=== PATIENT | male | born 1990 | race Caucasian/White ===

== ENCOUNTER 2020-06-08 20:39 | Emergency (ER) | payer OTHER ==
[2020-06-08 20:58] VITALS: BP 140/86; PULSE 91; TEMP 98.5; BMI 34.0
== END 2020-06-08 22:47 | disposition home or self-care (01) ==
LOC: JER 20:39
DX: U07.1 COVID-19 (principal)
CPT/HCPCS: 71046-TC-FY; 99283-25; C9803; U0003

== ENCOUNTER 2020-06-28 16:39 | Emergency (ER) | payer OTHER ==
[2020-06-28 17:00] VITALS: BP 121/79; PULSE 75; TEMP 98; BMI 33.0
[2020-06-28] MEDS ORDERED: FLUORESCEIN NA 1 EA STRIP ONE (17:29)
[2020-06-28] MEDS ORDERED: TETRACAINE 0.5% OPHTH SOLN 2 ML BOTTLE ONE (17:29)
== END 2020-06-28 18:00 | disposition home or self-care (01) ==
LOC: JERFT 16:39
DX: S05.01XA Injury of conjunctiva and corneal abrasion without foreign body, right eye, initial encounter (principal)
CPT/HCPCS: 99283-25

== ENCOUNTER 2021-05-02 06:28 | Emergency (ER) | payer OTHER ==
[2021-05-02] MEDS ORDERED: ACETAMINOPHEN 325 MG TABLET (FP) PO ONE (07:34)
[2021-05-02] MEDS ORDERED: ACETAMINOPHEN 500 MG TABLET (FP) ONE (07:36)
[2021-05-02] MEDS ORDERED: DEXAMETHASONE LIQUID 0.5 MG/5 ML PO ONE (07:59)
[2021-05-02 08:10] VITALS: BP 139/77; PULSE 123; TEMP 98.7; BMI 32.5
[2021-05-02] MEDS ORDERED: DEXAMETHASONE SOD PHOSPHATE 10 MG/1 ML VIAL ONE (08:13)
[2021-05-03 06:07] LABS: SARS-CoV-2 NAA Not Detected (Not Detected)
== END 2021-05-02 08:45 | disposition home or self-care (01) ==
LOC: JER 06:28
DX: J02.9 Acute pharyngitis, unspecified (principal)
CPT/HCPCS: 87651; 87804; 99283-25; C9803; U0003; U0005

== ENCOUNTER 2021-09-07 17:28 | Emergency (ER) | payer OTHER ==
[2021-09-07 17:48] VITALS: BP 130/75; PULSE 94; TEMP 98.6; BMI 36.0
[2021-09-07] MEDS ORDERED: METHOCARBAMOL 500 MG TABLET PO ONE (18:48)
[2021-09-07] MEDS ORDERED: KETOROLAC TROMETHAMINE 30 MG/1 ML VIAL IM ONE (18:48)
[2021-09-07] MEDS ORDERED: KETOROLAC TROMETHAMINE 30 MG/1 ML VIAL ONE (19:16)
[2021-09-07] MEDS ORDERED: METHOCARBAMOL 500 MG TABLET ONE (19:16)
== END 2021-09-07 19:31 | disposition home or self-care (01) ==
LOC: JERFT 17:28
PROC: 3E0233Z Introduction of Anti-inflammatory into Muscle, Percutaneous Approach (ICD-10-PCS; principal; 2021-09-07)
DX: M54.50 Low back pain, unspecified (principal)
CPT/HCPCS: 99283-25

== ENCOUNTER 2022-10-22 01:39 | Emergency (ER) | payer OTHER ==
[2022-10-22 01:53] VITALS: BP 112/70; PULSE 69; RESP 18; TEMP 98; BMI 36.0
[2022-10-22] MEDS ORDERED: ONDANSETRON *ODT* 4 MG TABLET SL ONE (02:27)
[2022-10-22] MEDS ORDERED: ACETAMINOPHEN 325 MG TABLET (FP) PO ONE (02:27)
[2022-10-22] MEDS ORDERED: DIPHTH,PERTUSS(ACELL),TET 0.5 ML DISP.SYRIN IM ONE ×2 (02:32→03:17)
[2022-10-22] MEDS ORDERED: ACETAMINOPHEN 325 MG TABLET (FP) ONE (03:17)
[2022-10-22] MEDS ORDERED: ONDANSETRON *ODT* 4 MG TABLET ONE (03:17)
== END 2022-10-22 04:56 | disposition home or self-care (01) ==
LOC: JER 01:39
PROC: 0HQ1XZZ Repair Face Skin, External Approach (ICD-10-PCS; principal; 2022-10-22)
PROC: 3E0234Z Introduction of Serum, Toxoid and Vaccine into Muscle, Percutaneous Approach (ICD-10-PCS; 2022-10-22)
DX: S01.81XA Laceration without foreign body of other part of head, initial encounter (principal); S01.511A Laceration without foreign body of lip, initial encounter; R11.0 Nausea; R51.9 Headache, unspecified; W22.8XXA Striking against or struck by other objects, initial encounter
CPT/HCPCS: 12011-25; 70450-TC; 70486-TC; 72125-TC; 90471; 90715; 99284-25; Q0162

== ENCOUNTER 2024-10-21 21:43 | Emergency (ER) | payer OTHER ==
[2024-10-21] MEDS ORDERED: CLINDAMYCIN 600MG PREMIX IVPB 600 MG/50 ML BAG IVPB ONE (21:51)
[2024-10-21] MEDS ORDERED: DIPHTH,PERTUSS(ACELL),TET 0.5 ML DISP.SYRIN IM ONE (21:51)
[2024-10-21] MEDS: CLINDAMYCIN 600MG PREMIX IVPB 600 MG/50 ML BAG IVPB ONE (21:56)
[2024-10-21] MEDS: DIPHTH,PERTUSS(ACELL),TET 0.5 ML DISP.SYRIN IM ONE (21:56)
[2024-10-21 22:00] VITALS: BMI 31.3
[2024-10-21] MEDS ORDERED: MORPHINE SULFATE 2 MG/ML SYRINGE ONE (22:00)
[2024-10-21 22:03] LABS: MCHC 32.1 g/dl (32.3-36.5); MEAN CELL VOLUME 86.3 fl (79.0-92.2); MEAN PLT VOLUME 12.3 fl (9.4-12.4); RDW 14.4 % (12.0-15.6)
[2024-10-21] MEDS: morphine CARPU-JECT 2 MG/1 ML DISP.SYRIN IVPUSH ONE (22:07)
[2024-10-21 22:30] LABS: CO2 23.0 mmol/L (21-32); GLUCOSE,RANDOM 119.0 mg/dL (74-106)
[2024-10-21 22:33] LABS: CREATININE 1.6 mg/dL (0.55-1.3); SGOT/AST 26.0 U/L (15-37); SGPT/ALT 44.0 U/L (13-61)
[2024-10-21 22:34] LABS: TOT PROT 7.5 g/dl (6.4-8.2)
[2024-10-21 22:36] LABS: ALK PHOS 55.0 U/L (45-117)
[2024-10-21] MEDS: SODIUM CHLORIDE 0.9% 500 ML INFUS.BAG IV ONE (23:12)
[2024-10-22 01:28] VITALS: BP 142/90; PULSE 88; RESP 18; TEMP 98.9
[2024-10-22] MEDS: morphine CARPU-JECT 2 MG/1 ML DISP.SYRIN IVPUSH ONE (01:49)
== END 2024-10-22 01:50 | disposition home or self-care (01) ==
LOC: JER 21:43
PROC: 0HQGXZZ Repair Left Hand Skin, External Approach (ICD-10-PCS; principal; 2024-10-21)
PROC: 3E03329 Introduction of Other Anti-infective into Peripheral Vein, Percutaneous Approach (ICD-10-PCS; 2024-10-21)
PROC: 3E033NZ Introduction of Analgesics, Hypnotics, Sedatives into Peripheral Vein, Percutaneous Approach (ICD-10-PCS; 2024-10-21)
PROC: 3E0234Z Introduction of Serum, Toxoid and Vaccine into Muscle, Percutaneous Approach (ICD-10-PCS; 2024-10-21)
DX: S61.412A Laceration without foreign body of left hand, initial encounter (principal); S61.313A Laceration without foreign body of left middle finger with damage to nail, initial encounter; S01.81XA Laceration without foreign body of other part of head, initial encounter; R94.31 Abnormal electrocardiogram [ECG] [EKG]; Z23 Encounter for immunization; W39.XXXA Discharge of firework, initial encounter
CPT/HCPCS: 12001-25; 36415; 70450-TC; 72125-TC; 73130-TC-LT-FY; 80053; 85027; 90471; 90715; 93005; 93010; 96365; 96375; 99285-25